=== PATIENT | male | born 1945 | race Caucasian/White ===

== ENCOUNTER → 2017-06-11 | Outpatient (CLI) | payer BC ==
--- NOTE | 2017-06-11 12:35 | Diagnostic Imaging Report ---
PROCEDURE:ABDOMEN-1VIEW (KUB) TECHNIQUE:Supine AP abdomen totaling 2 radiographs INDICATION:Urinary calculus COMPARISON:None. FINDINGS: See conclusion. CONCLUSION: 1. 4 mm left upper pole calcification. 2. Questionable 8 mm right inferior pole cluster of punctate calcifications 3. No calcifications over the ureters. 4. Pelvic phleboliths. Normal bowel gas pattern. 5. Degenerative disc disease and facet arthropathy. Right lower quadrant suture, possibly secondary to hernia repair. Dictated by: Alfonso Gallo M.D. on 06/11/2017 at 12:43 Electronically approved by: Alfonso Gallo M.D. on 06/11/2017 at 12:43
== END ==
LOC: RAD 12:03
PROVIDERS: ATTEND Urology
DX: N20.0 Calculus of kidney (principal)
CPT/HCPCS: 74000

== ENCOUNTER → 2018-01-01 | Day surgery (SDC) | payer BC ==
[2017-12-30 10:38] LABS: BASOPHILS # (AUTO) 0.1 (0.0-0.1); BASOPHILS % 0.6 % (0.0-1.0); EOSINOPHILS # (AUTO) 0.6 (0.0-0.4); EOSINOPHILS % 6.3 % (0.0-6.0); HEMATOCRIT 43.4 % (38.2-49.6); HEMOGLOBIN 15.6 g/dL (14.0-18.0); LYMPHOCYTES % 22.4 % (18.0-39.1); MEAN CORPUSCULAR HEMOGLOBIN 35.1 pg (28-32); MEAN CORPUSCULAR HGB CONC 35.9 g/dL (31-35); MEAN CORPUSCULAR VOLUME 97.5 fL (81-99); MONOCYTES # (AUTO) 0.7 (0.2-0.8); MONOCYTES % 7.9 % (4.4-11.3); NEUTROPHILS # (AUTO) 5.5 (2.1-6.9); NEUTROPHILS % 62.5 % (38.7-80.0); PLATELET COUNT 118 x10e3/uL (140-360); RED BLOOD COUNT 4.45 x10e6/uL (4.3-5.7); RED CELL DISTRIBUTION WIDTH 12.1 % (11.7-14.4)
[2017-12-30 11:04] LABS: ANION GAP 14.5 mmol/L (8-16); CALCIUM 9.7 mg/dL (8.4-10.2); CREATININE, SERUM 1.31 mg/dL (0.72-1.25); POTASSIUM 4.5 mmol/L (3.5-5.1)
--- NOTE | 2017-12-30 11:20 | Diagnostic Imaging Report ---
PROCEDURE: Frontal and lateral views of the chest. COMPARISON: None. INDICATIONS: PREOP CXR FINDINGS: Lines/tubes: None. Lungs: The lungs are well inflated and clear. There is no evidence of pneumonia or pulmonary edema. Pleura: There is no pleural effusion or pneumothorax. Heart and mediastinum: The heart and the mediastinum are normal. Bones: No acute bony abnormality. Degenerative changes of the spine. IMPRESSION: 1. No acute cardiopulmonary disease. Dictated by: Manan Rodríguez M.D. on 12/30/2017 at 11:25 Electronically approved by: Manan Rodríguez M.D. on 12/30/2017 at 11:25
[~2018-01-01] MED LIST: ATORVASTATIN CA20 MG PO; CEFTRIAXONE SOD 1 GM VIAL ONE; CENTRUM SILVER1 EAC3; CLOPIDOGREL75 MG PO; COQ-10100 MG; FLUTICASONE PRO16 GM; GENTAMICIN 80MG/NS 100 ML 200 ML IV ONE; HYDROMORPHONE 1MG/1ML INJ ONE; INVOKAMET; IOPAMIDOL 300MG/ML 50ML INFUS..BTL IV ONE; LIDOCAINE HCL 2% LOCAL INJ 5 ML SDV VIAL INJ ONE; LOSARTAN POTAS100 MG PO; MIDAZOLAM HCL 2 MG/2 ML VIAL ONE; OMEGA 3 1,0001 EACH; PANTOPRAZOLE SO40 MG PO; PROPOFOL IV EMULSION 10 MG/ML 20 ML VIAL ONE; RANITIDINE HCL150 MG; SEVOFLURANE INHAL SOLN 250 ML PEN BTL ONE; TAMSULOSIN HCL0.4 MG; TRADJENTA5 MG; VITAMIN B-121000 MCG PO; VITAMIN D32000 UNIT; potassium
--- NOTE | 2018-03-02 01:14 | Operative Report ---
DATE OF PROCEDURE: January 01, 2018 PREOPERATIVE DIAGNOSES 1. Obstructive BPH. 2. Incomplete bladder emptying. POSTOPERATIVE DIAGNOSES 1. Obstructive BPH. 2. Incomplete bladder emptying. OPERATIONS PERFORMED 1. Cystourethroscopy with bilateral ureteral catheterization and retrograde ureteropyelography (separate procedure performed for the incomplete bladder emptying). 2. Interpretation of retrograde ureteropyelography. 3. Supervision of fluoroscopy. No radiologist present. 4. Cystourethroscopy with transurethral implantation of 4 UroLift implants (separate procedure performed for the obstructive BPH). ANESTHESIA: General. COMPLICATIONS: None. CLINICAL SUMMARY: Meliton Moore is a 72-year-old man with obstructive BPH. He is brought for the above procedures. He is aware of the risks of bleeding, infection, injury to adjacent structures, need for additional procedures, and elected to proceed. OPERATIVE PROCEDURE IN DETAIL: Informed consent was verified. Meliton Moore was properly identified, taken to operating room, placed on the cystoscopy table in supine position. Anesthesia was uneventfully begun. The patient was then carefully and gently repositioned in the dorsal lithotomy position with all pressure points well padded. His genitalia were prepared and draped in usual sterile fashion. A 22.5-[place] cystoscope sheath with the visual obturator in place was atraumatically inserted through patient's urethra. It was guided down the unremarkable urethra past a normal sphincteric region through the prostate bed, was significant for bilobar prostatic hypertrophy with kissing lateral lobes. No median lobe was present. Bladder neck was not obstructed. Panendoscopy of the urinary bladder revealed trabeculations, but no tumors, no stones, and no diverticula. Normally positioned and configured ureteral orifices were identified. Ureteral catheter was used to cannulate each ureter and retrograde ureteropyelography was performed. Interpretation retrograde ureteropyelography: Contrast was instilled in retrograde fashion bilaterally. There were no tumors, no stones, and no diverticula. Unobstructed drainage was observed bilaterally fluoroscopically. J-hooking was noted bilaterally. 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 We introduced the 20-[place] cystoscope with the visual obturator and then we placed 4 UroLift implants. These implants were placed anterolaterally at 0.5 cm distal to the bladder neck and on the either side of the verumontanum. This resulted in continuous open anterior prostatic urethral channel. Hemostasis was adequate. The patient was then uneventfully reversed from anesthesia and taken to recovery room in stable condition. There were no complications to procedure. Patient tolerated the procedure well. Estimated blood loss was minimal. Explicit postoperative instructions were given. Will follow the patient up in the office. At which point in time, will perform uroflowmetry and bladder ultrasonography. Job#: [id number] CQ
== END | disposition home or self-care (01) ==
LOC: OR 07:10
PROVIDERS: ATTEND Urology
DX: N40.1 Benign prostatic hyperplasia with lower urinary tract symptoms (principal); N13.8 Other obstructive and reflux uropathy; R39.14 Feeling of incomplete bladder emptying; R35.0 Frequency of micturition; R39.15 Urgency of urination; R81 Glycosuria; N32.89 Other specified disorders of bladder; R35.1 Nocturia; Z87.442 Personal history of urinary calculi; I10 Essential (primary) hypertension; E11.9 Type 2 diabetes mellitus without complications; N50.0 Atrophy of testis; M19.90 Unspecified osteoarthritis, unspecified site; J32.9 Chronic sinusitis, unspecified; K42.9 Umbilical hernia without obstruction or gangrene; E66.01 Morbid (severe) obesity due to excess calories; Z71.3 Dietary counseling and surveillance; Z01.810 Encounter for preprocedural cardiovascular examination; Z01.812 Encounter for preprocedural laboratory examination; Z01.818 Encounter for other preprocedural examination; Z79.84 Long term (current) use of oral hypoglycemic drugs; Z79.02 Long term (current) use of antithrombotics/antiplatelets; Z86.73 Personal history of transient ischemic attack (TIA), and cerebral infarction without residual deficits
CPT/HCPCS: 52005; C9740; 36415; 71046; 74420; 80048; 82948; 85025; 93005; J0696; J1170; J1580; J2001; J2250; L8699

== ENCOUNTER → 2020-02-02 | Outpatient (CLI) | payer BC ==
[~2020-02-02] MED LIST changes: -CEFTRIAXONE SOD 1 GM VIAL ONE; -GENTAMICIN 80MG/NS 100 ML 200 ML IV ONE; -HYDROMORPHONE 1MG/1ML INJ ONE; -IOPAMIDOL 300MG/ML 50ML INFUS..BTL IV ONE; -LIDOCAINE HCL 2% LOCAL INJ 5 ML SDV VIAL INJ ONE; -MIDAZOLAM HCL 2 MG/2 ML VIAL ONE; -PROPOFOL IV EMULSION 10 MG/ML 20 ML VIAL ONE; -SEVOFLURANE INHAL SOLN 250 ML PEN BTL ONE
--- NOTE | 2020-02-02 14:05 | Diagnostic Imaging Report ---
Abdomen, 1 view. History: Renal calculi. Findings: Air is scattered throughout nondilated small and large bowel. There are no masses or abnormal calcifications. Calcified phleboliths are present within the pelvis bilaterally. Surgical clips are present in the right pelvis and radiation seeds are noted within the prostate. Degenerative changes are present within the lumbar spine. IMPRESSION: Non-specific bowel gas pattern. No visible renal calculi. Signed by: Jed Snowden on 02/02/2020 2:02 PM
== END ==
LOC: RAD 12:04
PROVIDERS: ATTEND Urology
DX: N20.0 Calculus of kidney (principal)
CPT/HCPCS: 74018

== ENCOUNTER → 2020-07-12 | Outpatient (CLI) | payer BC | LOC: RAD 15:09 | PROVIDERS: ATTEND Urology | DX: N20.0 Calculus of kidney (principal) | CPT/HCPCS: 74018 ==